=== PATIENT | male | born 1975 | race Caucasian/White ===

== ENCOUNTER 2016-12-16 17:17 | Emergency (ER) | payer OTHER ==
[~2016-12-16] VITALS: Ht 170.2 cm; Wt 93.0 kg
--- NOTE | 2016-12-16 19:43 | ED ANKLE/FOOT INJURY COMPLAINT ---
History of Present Illness General Chief Complaint: Foot or Ankle Injury Stated Complaint: PT HURT HIS ANKLE PLAYING SOCCOR Source: patient, family Exam Limitations: no limitations Vital Signs & Intake/Output Vital Signs & Intake/Output Vital Signs Date Time Temp Pulse Resp B/P B/P Pulse O2 O2 Flow FiO2 Mean Ox Delivery Rate 12/16 2017 98.0 80 18 135/69 98 12/16 1734 98.2 86 20 148/91 96 Room Air ED Intake and Output 12/17 0000 12/16 1200 Intake Total Output Total Balance Patient 205 lb Weight Weight Reported by Patient Measurement Method Allergies Coded Allergies: No Known Allergies (12/16/16) Reconcile Medications Hydrocodone/Acetaminophen (Vicodin 5-300 MG Tablet) 5 MG-300 MG TABLET 1 TAB PO Q6 PRN pain Ibuprofen 800 MG TABLET 1 TAB PO Q8 PRN PAIN Triage Note: TRIAGE: PT TO ER C/C R ANKLE PAIN S/P INJURY PLAYING SOCCER APPROX 09:00. STATES HE WAS PLAYING SOCCER, MADE A SUDDEN MOVE AND FELT A POP TO HIS ACHILLES. Triage Nurses Notes Reviewed? yes HPI: Patient is a 41-year-old male presents complaining of pain in the area of his right Achilles tendon. Patient was playing soccer at approximately 9 AM this morning when he felt a pop to the area. Pain is a throbbing sensation currently 8-9 out of 10. Patient took ibuprofen earlier today with multiple moderate improvement. Patient reports that an orthopedist examined him when the injury occurred and believed that his Achilles tendon was partially ruptured. Patient denies head injury, neck pain, back pain. (ALBIN ESTRADA) Past History Travel History Traveled to [place] past 21 day No Medical History Any Pertinent Medical History? none Neurological: NONE EENT: NONE Cardiovascular: NONE Respiratory: NONE Gastrointestinal: NONE Hepatic: NONE Renal: NONE Musculoskeletal: NONE Psychiatric: NONE Endocrine: NONE Blood Disorders: NONE Cancer(s): NONE WATER MANAGER/Reproductive: NONE Surgical History Surgical History: non-contributory Psychosocial History What is your primary language Luxembourgish Tobacco Use: Never used ETOH Use: denies use Illicit Drug Use: denies illicit drug use Family History Hx Contributory? No (ALBIN ESTRADA) Review of Systems Review of Systems Constitutional: Reports: no symptoms. Cardiovascular: Denies: chest pain. GI: Denies: abdominal pain. Musculoskeletal: Reports: see HPI. Denies: back pain, neck pain. Skin: Reports: no symptoms. Neurological/Psychological: Denies: numbness, paresthesia. Hematologic/Endocrine: Denies: bruising, bleeding. Immunologic/Allergic: Denies: splenectomy. (ALBIN ESTRADA) Physical Exam Physical Exam General Appearance: well developed/nourished, alert, awake Head: atraumatic, normal appearance Eyes: Bilateral: normal appearance. Ears, Nose, Throat: hearing grossly normal Cardiovascular/Respiratory: no respiratory distress Leg/Knee/Thigh Left: normal range of motion, normal inspection Leg/Knee/Thigh Right: tenderness and partial step-off right achilles. patient able to actively dorsiflex and plantar flex. Ankle Right: no bony tenderness Foot Right: normal inspection, normal range of motion, dorsalis pedis pulse 2+. No bony tenderness. Neuro/Vascular: normal sensation Psychiatric: awake, alert, oriented x 3 Skin: intact, normal color, warm/dry (ALBIN ESTRADA) Progress Differential Diagnosis: fracture, dislocation, sprain, contusion, Achilles tendon rupture Plan of Care: Orders Procedure Date/time Status Durable Zappedy 12/16 1953 Active X-ray deferred secondary to exam. Patient splinted with plantar flexion due to clinical achilles tendon rupture(appears partial) (ALBIN ESTRADA) Departure Departure Time of Disposition: 2002 Disposition: HOME OR SELF CARE Condition: Stable Clinical Impression Primary Impression: Achilles tendon rupture Qualifiers: Encounter type: initial encounter Laterality: right Qualified Code: S86.011A - Strain of right Achilles tendon, initial encounter Referrals: GREGORY MEDINA,ALBIN Benites (PCP/Family) COLIN WALTON MD Additional Instructions: Rest, elevate, wear splint until he follow-up with the orthopedist. Follow-up with Dr. Walton (orthopedist) for further evaluation. Call in the morning for appointment. Return to the emergency department if numbness, pain uncontrollable, or worsening of symptoms. Departure Forms: Customer Survey General Discharge Information Prescriptions: Current Visit Scripts Ibuprofen 1 TAB PO Q8 PRN PAIN #20 TAB Hydrocodone/Acetaminophen (Vicodin 5-300 MG Tablet) 1 TAB PO Q6 PRN pain #10 TAB (ALBIN ESTRADA) PA/HOOP COILER Co-Sign Statement Statement: ED Attending supervision documentation- [] I saw and evaluated the patient. I have also reviewed all the pertinent lab results and diagnostic results. I agree with the findings and the plan of care as documented in the PA's/HOOP COILER's documentation. [x] I have reviewed the ED Record and agree with the PA's/HOOP COILER's documentation. [] Additions or exceptions (if any) to the PAs/HOOP COILER's note and plan are summarized below: [] (ROSE MEDINA,SANA Butts) Procedures Splinting Location: right lower extremity Hand-Made Type: orthoglass Splint: posterior short leg splint with plantar flexion of approximately 45 degrees Splint Applied By: splint applied by me Pre-Proc Neuro Vasc Exam: normal Post-Proc Neuro Vasc Exam: normal (LANG BECKER,ALBIN)
[2016-12-16] MEDS ORDERED: IBUPROFEN800 M1 PO (20:04)
[2016-12-16] MEDS ORDERED: VICODIN 5-3001 EACH PO (20:04)
[2016-12-16 20:18] VITALS: BP 135/69
== END 2016-12-16 20:19 ==
LOC: ERH 17:17
DX: S86.011A Strain of right Achilles tendon, initial encounter (principal); X58.XXXA Exposure to other specified factors, initial encounter; Y93.66 Activity, soccer; Y92.9 Unspecified place or not applicable